=== PATIENT | male | born 1965 | race Caucasian/White ===

== ENCOUNTER 2020-05-18 22:48 | Inpatient (IN) | payer MEDICAID, OTHER ==
[~2020-05-18] VITALS: Ht 167.6 cm; Wt 106.8 kg
[2020-05-18 23:54] LABS: BG BASE EXCESS -9.3 mmol/L (-2.0-2.0); BG CARBOXYHEMOGLOBIN 0.3 % (0.5-1.5); BG DEOXYHEMOGLOBIN 5.8 % (0.0-5.0); BG FRACTION INSPIRED OXYGEN 100; BG HCO3 ACT 17.8 mmol/L (22.0-26.0); BG METHEMOGLOBIN 0.3 % (0.0-1.5); BG OXYGEN SATURATION 94.2 % (92.0-98.5); BG OXYHEMOGLOBIN 93.6 % (94.0-97.0); BG PCO2 43.5 mmHg (35.0-45.0); BG TOTAL HEMOGLOBIN 11.8 g/dL (12.0-18.0); BG VENT MODE MASK - NRB
[2020-05-19] MEDS ORDERED: LEVOFLOXACIN 500MG PREMIX 100 ML IV ONE
[2020-05-19] MEDS ORDERED: PIPERACILLIN/TAZ 3.375G PREMIX 50 ML IV ONE
[2020-05-19 00:15] LABS: HEMATOCRIT. 33.7 % (42.0-52.0); HEMOGLOBIN. 10.9 g/dL (14.0-18.0); MEAN CORPUSCULAR HEMOGLOBIN 28.3 pg (28.0-32.0); MEAN CORPUSCULAR VOLUME 87.6 fL (80.0-94.0); MEAN PLATELET VOLUME 8.5 fl (7.4-10.4); PLATELET 331 x1000/uL (130-400); RED BLOOD CELL COUNT 3.85 mill/uL (4.7-6.1); RED CELL DISTRIBUTION WIDTH 15.1 % (11.6-14.6)
[2020-05-19] MEDS ORDERED: SODIUM CHLORIDE 0.9% 1,000 ML IV ONE (00:15)
[2020-05-19] MEDS ORDERED: DEXAMETHASONE 10 MG/ML VIAL IV ONE (00:15)
[2020-05-19 00:21] LABS: CHLORIDE 108 mEq/L (98-107)
[2020-05-19 00:27] LABS: ETHANOL BLOOD < 10 mg/dL
[2020-05-19 00:31] LABS: CREATINE KINASE 204 IU/L (39-308)
[2020-05-19 00:35] LABS: D-DIMER 0.52 mg/L FEU (<0.50); INR 1.1; PROTHROMBIN TIME 11.4 sec (9.6-11.0)
[2020-05-19 00:48] LABS: FIBRINOGEN > 900 mg/dL (200-400)
[2020-05-19] MEDS ORDERED: DOPAMINE 400MG/250ML PREMIX 250 ML IV ONE (01:00)
[2020-05-19] MEDS ORDERED: DOPAMINE 400MG/250ML PREMIX 250 ML IV NR (03:30)
[2020-05-19 05:02] LABS: CLARITY URINE TURBID (CLEAR); COLOR URINE YELLOW (YELLOW); KETONES URINE TRACE (NEGATIVE); LEUKOCYTE ESTERASE URINE NEGATIVE (NEGATIVE); NITRITE URINE NEGATIVE (NEGATIVE); OCCULT BLOOD URINE 1+ (NEGATIVE); PROTEIN URINE 4+ (NEGATIVE); SPECIFIC GRAVITY URINE 1.023 (1.005-1.030); UROBILINOGEN URINE 0.2 E.U./dL (0.2-1.0)
[2020-05-19 05:06] LABS: PLATELET ESTIMATE NORMAL
[2020-05-19 05:27] LABS: *COCAINE SCREEN URINE NEGATIVE (NEGATIVE); METHADONE URINE SCREEN NEGATIVE (NEGATIVE); OPIATES URINE SCREEN NEGATIVE (NEGATIVE); PHENCYCLIDINE URINE SCREEN NEGATIVE (NEGATIVE)
[2020-05-19 05:28] LABS: *AMPHETAMINES SCREEN URINE NEGATIVE (NEGATIVE); *BARBITURATES SCREEN URINE NEGATIVE (NEGATIVE); *BENZODIAZEPINES SCREEN URINE NEGATIVE (NEGATIVE); CANNABINOID URINE SCREEN NEGATIVE (NEGATIVE)
[2020-05-19] MEDS ORDERED: DEXTROSE 50% WATER 50ML SYRINGE IV PRN (09:00)
[2020-05-19] MEDS ORDERED: SODIUM POLYSTYRENE SULFONATE 15 G/60 ML BOT PO SCH (09:00)
[2020-05-19] MEDS ORDERED: PIPERACILLIN/TAZOBACTAM 2.25 G in DEXTROSE 5% WATER 50 ML IV SCH (09:00)
[2020-05-19] MEDS ORDERED: PIPERACILLIN/TAZOBACTAM 3.375 G in DEXT 5% WATER 100 ML IV SCH (09:00)
[2020-05-19] MEDS: BLOOD SUGAR DIAGNOSTIC STRIP TEST SCH ×4 (09:11→20:49)
[2020-05-19] MEDS ORDERED: LIDOCAINE HCL 1% 20ML VIAL (Pyxis) INJ ONE (09:14)
[2020-05-19] MEDS ORDERED: SODIUM BICARBONATE 8.4% 1 MEQ/ML 50ML SYR IV NR (09:30)
[2020-05-19] MEDS ORDERED: ALBUMIN HUMAN 12.5GM/50ML (25%) IV NR (10:00)
[2020-05-19] MEDS ORDERED: ALBUMIN HUMAN 25GM/100ML (25%) IV NR (10:00)
[2020-05-19 11:00] VITALS: BP 167/91
[2020-05-19 12:00] VITALS: BP 161/91
[2020-05-19] MEDS: ACETAMINOPHEN 325MG TABLET PO PRN ×2 (12:46→20:48)
[2020-05-19 12:54] VITALS: BP 167/91
[2020-05-19] MEDS: INSULIN LISPRO 100 UNITS/ML SUBCUT SCH ×3 (14:24→20:49)
[2020-05-19] MEDS: PIPERACILLIN/TAZOBACTAM 2.25 G in DEXTROSE 5% WATER 50 ML IV SCH (17:54)
[2020-05-19] MEDS ORDERED: INSULIN GLARGINE UD 100 UNITS/ML SYR SUBCUT NR ×2 (18:15→19:30)
[2020-05-19] MEDS: AMLODIPINE 10MG TABLET PO SCH (18:52)
[2020-05-19] MEDS ORDERED: IVERMECTIN 3 MG TABLET PO ONE (19:15)
[2020-05-19 20:00] VITALS: BP 109/75
[2020-05-19] MEDS ORDERED: COLCHICINE 0.6MG TABLET PO SCH (21:00)
[2020-05-19] MEDS ORDERED: INSULIN GLARGINE UD 100 UNITS/ML SYR SUBCUT SCH (22:00)
[2020-05-20] MEDS: PIPERACILLIN/TAZOBACTAM 2.25 G in DEXTROSE 5% WATER 50 ML IV SCH ×3 (01:07→17:34)
[2020-05-20 01:15] VITALS: BP 145/89
[2020-05-20] MEDS: HYDROCODONE/ACETAMINOPHEN 5/325MG TABLET PO PRN ×2 (01:27→08:48)
[2020-05-20 04:00] VITALS: BP 144/78
[2020-05-20] MEDS: INSULIN LISPRO 100 UNITS/ML SUBCUT SCH ×4 (06:38→21:59)
[2020-05-20] MEDS: BLOOD SUGAR DIAGNOSTIC STRIP TEST SCH ×4 (06:39→21:09)
[2020-05-20 07:42] LABS: HEMATOCRIT. 32.4 % (42.0-52.0); HEMOGLOBIN. 10.5 g/dL (14.0-18.0); MEAN CORPUSCULAR HEMOGLOBIN 28.3 pg (28.0-32.0); MEAN CORPUSCULAR VOLUME 87.9 fL (80.0-94.0); MEAN PLATELET VOLUME 8.3 fl (7.4-10.4); PLATELET 312 x1000/uL (130-400); RED BLOOD CELL COUNT 3.69 mill/uL (4.7-6.1); RED CELL DISTRIBUTION WIDTH 15.1 % (11.6-14.6)
[2020-05-20 08:00] VITALS: BP 153/84
[2020-05-20 08:08] LABS: CHLORIDE 103 mEq/L (98-107)
[2020-05-20 08:14] LABS: PHOSPHORUS 6.7 mg/dL (2.5-4.9)
[2020-05-20 08:16] LABS: CREATINE KINASE 110 IU/L (39-308)
[2020-05-20] MEDS: AMLODIPINE 10MG TABLET PO SCH (08:39)
[2020-05-20] MEDS: INSULIN GLARGINE UD 100 UNITS/ML SYR SUBCUT SCH ×2 (11:09→22:00)
[2020-05-20 12:00] VITALS: BP 140/80
[2020-05-20] MEDS ORDERED: IPRATROPIUM/ALBUTEROL 0.5-3(2.5)MG/3ML NEB HHN PRN (15:45)
[2020-05-20 16:00] VITALS: BP 144/83
[2020-05-20 18:31] LABS: PLATELET ESTIMATE NORMAL
[2020-05-20 21:17] VITALS: BP 144/83
[2020-05-21] VITALS: BP 139/74
[2020-05-21] MEDS: PIPERACILLIN/TAZOBACTAM 2.25 G in DEXTROSE 5% WATER 50 ML IV SCH ×3 (02:09→17:06)
[2020-05-21] MEDS: INSULIN LISPRO 100 UNITS/ML SUBCUT SCH ×4 (06:54→21:48)
[2020-05-21] MEDS: BLOOD SUGAR DIAGNOSTIC STRIP TEST SCH ×4 (06:54→21:00)
[2020-05-21 07:00] VITALS: BP 120/78
[2020-05-21 07:41] LABS: BASOPHILS % 0.3 % (0.0-2.0); EOSINOPHILS % 3.8 % (0.0-5.0); HEMATOCRIT. 33.9 % (42.0-52.0); HEMOGLOBIN. 10.9 g/dL (14.0-18.0); LYMPHOCYTES % 9.3 % (20.0-50.0); MEAN CORPUSCULAR HEMOGLOBIN 27.9 pg (28.0-32.0); MEAN CORPUSCULAR VOLUME 86.6 fL (80.0-94.0); MONOCYTES % 6.6 % (2.0-8.0); PLATELET 349 x1000/uL (130-400); RED BLOOD CELL COUNT 3.91 mill/uL (4.7-6.1); RED CELL DISTRIBUTION WIDTH 14.8 % (11.6-14.6)
[2020-05-21 08:00] VITALS: BP 155/78
[2020-05-21 08:08] LABS: HIV SCREEN 4G Non Reactive (Non Reactive)
[2020-05-21 08:09] LABS: PHOSPHORUS 7.6 mg/dL (2.5-4.9)
[2020-05-21] MEDS: AMLODIPINE 10MG TABLET PO SCH (08:43)
[2020-05-21] MEDS: INSULIN GLARGINE UD 100 UNITS/ML SYR SUBCUT SCH ×2 (10:53→21:47)
[2020-05-21] MEDS: HYDROCODONE/ACETAMINOPHEN 5/325MG TABLET PO PRN ×3 (10:56→21:46)
[2020-05-21 12:00] VITALS: BP 137/75
[2020-05-21 16:00] VITALS: BP 143/78
[2020-05-21] MEDS ORDERED: IVERMECTIN 3 MG TABLET PO ONE (19:15)
[2020-05-21 20:00] VITALS: BP 131/68
[2020-05-22] VITALS: BP 129/66
[2020-05-22] MEDS: PIPERACILLIN/TAZOBACTAM 2.25 G in DEXTROSE 5% WATER 50 ML IV SCH ×3 (01:31→17:27)
[2020-05-22 04:00] VITALS: BP 134/76
[2020-05-22] MEDS: BLOOD SUGAR DIAGNOSTIC STRIP TEST SCH ×4 (06:11→21:00)
[2020-05-22] MEDS: INSULIN LISPRO 100 UNITS/ML SUBCUT SCH ×4 (06:12→21:00)
[2020-05-22 07:29] LABS: BASOPHILS % 0.6 % (0.0-2.0); EOSINOPHILS % 9.2 % (0.0-5.0); HEMATOCRIT. 33.3 % (42.0-52.0); HEMOGLOBIN. 10.9 g/dL (14.0-18.0); LYMPHOCYTES % 8.4 % (20.0-50.0); MEAN CORPUSCULAR HEMOGLOBIN 28.4 pg (28.0-32.0); MEAN CORPUSCULAR VOLUME 86.9 fL (80.0-94.0); MEAN PLATELET VOLUME 8.3 fl (7.4-10.4); MONOCYTES % 7.3 % (2.0-8.0); NEUTROPHILS % 74.5 % (40.0-76.0); PLATELET 370 x1000/uL (130-400); RED BLOOD CELL COUNT 3.83 mill/uL (4.7-6.1); RED CELL DISTRIBUTION WIDTH 14.6 % (11.6-14.6)
[2020-05-22 07:50] LABS: PHOSPHORUS 7.9 mg/dL (2.5-4.9)
[2020-05-22 08:00] VITALS: BP 155/84
[2020-05-22] MEDS: AMLODIPINE 10MG TABLET PO SCH (08:18)
[2020-05-22] MEDS: GUAIFENESIN 200MG/10ML SUGAR FREE UDC PO PRN (09:25)
[2020-05-22] MEDS: INSULIN GLARGINE UD 100 UNITS/ML SYR SUBCUT SCH ×2 (10:07→21:08)
[2020-05-22 12:00] VITALS: BP 143/73
[2020-05-22] MEDS: HYDROCODONE/ACETAMINOPHEN 5/325MG TABLET PO PRN (12:13)
[2020-05-22] MEDS: DOCUSATE SODIUM 100MG CAPSULE PO SCH ×2 (13:36→21:09)
[2020-05-22 16:00] VITALS: BP 144/73
[2020-05-22 20:00] VITALS: BP 148/77
[2020-05-22] MEDS: GUAIFENESIN 600MG ER TABLET PO SCH (21:09)
[2020-05-23] VITALS: BP 147/69
[2020-05-23] MEDS: HYDROCODONE/ACETAMINOPHEN 5/325MG TABLET PO PRN ×2 (01:07→20:57)
[2020-05-23] MEDS: PIPERACILLIN/TAZOBACTAM 2.25 G in DEXTROSE 5% WATER 50 ML IV SCH ×3 (01:14→18:00)
[2020-05-23] MEDS: IPRATROPIUM/ALBUTEROL 0.5-3(2.5)MG/3ML NEB HHN SCH ×3 (01:43→21:50)
[2020-05-23 04:00] VITALS: BP 159/74
[2020-05-23] MEDS: BLOOD SUGAR DIAGNOSTIC STRIP TEST SCH ×4 (06:08→20:26)
[2020-05-23] MEDS: INSULIN LISPRO 100 UNITS/ML SUBCUT SCH ×4 (06:08→22:13)
[2020-05-23 06:52] LABS: BASOPHILS % 0.5 % (0.0-2.0); EOSINOPHILS % 10.6 % (0.0-5.0); HEMATOCRIT. 33.7 % (42.0-52.0); HEMOGLOBIN. 11.1 g/dL (14.0-18.0); LYMPHOCYTES % 8.7 % (20.0-50.0); MEAN CORPUSCULAR HEMOGLOBIN 28.3 pg (28.0-32.0); MEAN CORPUSCULAR VOLUME 86.3 fL (80.0-94.0); NEUTROPHILS % 72.2 % (40.0-76.0); PLATELET 355 x1000/uL (130-400); RED BLOOD CELL COUNT 3.91 mill/uL (4.7-6.1); RED CELL DISTRIBUTION WIDTH 14.7 % (11.6-14.6)
[2020-05-23 07:34] LABS: HEPATITIS B SURFACE ANTIGEN NEGATIVE
[2020-05-23 07:55] LABS: PHOSPHORUS 8.4 mg/dL (2.5-4.9)
[2020-05-23 08:00] VITALS: BP 160/84
[2020-05-23 08:04] LABS: HEPATITIS A AB IGM NEGATIVE (NEGATIVE)
[2020-05-23 08:45] LABS: BG BASE EXCESS -5.5 mmol/L (-2.0-2.0); BG CARBOXYHEMOGLOBIN 0.3 % (0.5-1.5); BG DEOXYHEMOGLOBIN 9.7 % (0.0-5.0); BG FRACTION INSPIRED OXYGEN 80; BG HCO3 ACT 19.9 mmol/L (22.0-26.0); BG METHEMOGLOBIN 0.1 % (0.0-1.5); BG OXYGEN SATURATION 90.3 % (92.0-98.5); BG OXYHEMOGLOBIN 89.9 % (94.0-97.0); BG PCO2 38.2 mmHg (35.0-45.0); BG PH 7.334 (7.350-7.450); BG PO2 59.8 mmHg (75.0-100.0); BG SAMPLE SITE RIGHT RADIAL; BG TOTAL HEMOGLOBIN 11.7 g/dL (12.0-18.0); BG VENT MODE MASK - SIMPLE
[2020-05-23] MEDS: GUAIFENESIN 200MG/10ML SUGAR FREE UDC PO PRN (08:56)
[2020-05-23] MEDS: DOCUSATE SODIUM 100MG CAPSULE PO SCH ×2 (08:56→17:00)
[2020-05-23] MEDS: AMLODIPINE 10MG TABLET PO SCH (08:56)
[2020-05-23] MEDS: GUAIFENESIN 600MG ER TABLET PO SCH ×2 (08:57→20:54)
[2020-05-23] MEDS: INSULIN GLARGINE UD 100 UNITS/ML SYR SUBCUT SCH ×2 (10:00→22:13)
[2020-05-23 16:00] VITALS: BP 152/72
[2020-05-23 20:00] VITALS: BP 168/77
[2020-05-24] VITALS (7 sets, daily range): BP systolic 143–176; BP diastolic 70–82
[2020-05-24] MEDS: PIPERACILLIN/TAZOBACTAM 2.25 G in DEXTROSE 5% WATER 50 ML IV SCH ×2 (01:42→11:39)
[2020-05-24] MEDS: IPRATROPIUM/ALBUTEROL 0.5-3(2.5)MG/3ML NEB HHN SCH ×4 (02:20→20:43)
[2020-05-24] MEDS: BLOOD SUGAR DIAGNOSTIC STRIP TEST SCH ×4 (06:02→20:15)
[2020-05-24] MEDS: HYDROCODONE/ACETAMINOPHEN 5/325MG TABLET PO PRN ×2 (06:33→21:29)
[2020-05-24] MEDS: AMLODIPINE 10MG TABLET PO SCH (06:41)
[2020-05-24] MEDS: INSULIN LISPRO 100 UNITS/ML SUBCUT SCH ×4 (06:43→20:24)
[2020-05-24 07:16] LABS: PHOSPHORUS 5.7 mg/dL (2.5-4.9)
[2020-05-24 07:37] LABS: HEMATOCRIT. 33.6 % (42.0-52.0); HEMOGLOBIN. 11.3 g/dL (14.0-18.0); MEAN CORPUSCULAR HEMOGLOBIN 28.7 pg (28.0-32.0); MEAN CORPUSCULAR VOLUME 85.6 fL (80.0-94.0); PLATELET 354 x1000/uL (130-400); RED BLOOD CELL COUNT 3.93 mill/uL (4.7-6.1); RED CELL DISTRIBUTION WIDTH 14.5 % (11.6-14.6)
[2020-05-24] MEDS: GUAIFENESIN 600MG ER TABLET PO SCH ×2 (08:54→20:24)
[2020-05-24] MEDS: DOCUSATE SODIUM 100MG CAPSULE PO SCH ×2 (08:54→17:45)
[2020-05-24] MEDS ORDERED: LOSARTAN POTASSIUM 25 MG TABLET PO SCH (09:00)
[2020-05-24] MEDS: INSULIN GLARGINE UD 100 UNITS/ML SYR SUBCUT SCH ×2 (11:40→21:32)
[2020-05-24 12:06] LABS: BG BASE EXCESS 0.9 mmol/L (-2.0-2.0); BG CARBOXYHEMOGLOBIN 0.3 % (0.5-1.5); BG DEOXYHEMOGLOBIN 7.6 % (0.0-5.0); BG FRACTION INSPIRED OXYGEN 52; BG METHEMOGLOBIN 0.1 % (0.0-1.5); BG OXYGEN SATURATION 92.4 % (92.0-98.5); BG PCO2 43.3 mmHg (35.0-45.0); BG PH 7.396 (7.350-7.450); BG PO2 64.1 mmHg (75.0-100.0); BG SAMPLE SITE RIGHT RADIAL; BG TOTAL HEMOGLOBIN 10.4 g/dL (12.0-18.0); BG VENT MODE MASK - SIMPLE
[2020-05-24] MEDS ORDERED: LOSARTAN POTASSIUM 50 MG TABLET PO NR (13:00)
[2020-05-24] MEDS ORDERED: LOSARTAN POTASSIUM 25 MG TABLET PO NR (13:00)
[2020-05-24] MEDS: ACETYLCYSTEINE 100MG/ML 10% VIAL 4ML INH SCH (20:43)
[2020-05-24 22:37] LABS: PLATELET ESTIMATE NORMAL
[2020-05-25] VITALS: BP 133/72
[2020-05-25 04:00] VITALS: BP 158/78
[2020-05-25] MEDS: IPRATROPIUM/ALBUTEROL 0.5-3(2.5)MG/3ML NEB HHN SCH ×5 (04:33→21:20)
[2020-05-25] MEDS: BLOOD SUGAR DIAGNOSTIC STRIP TEST SCH ×4 (05:59→21:59)
[2020-05-25] MEDS: INSULIN LISPRO 100 UNITS/ML SUBCUT SCH ×4 (05:59→22:08)
[2020-05-25 07:38] LABS: PHOSPHORUS 6.2 mg/dL (2.5-4.9)
[2020-05-25 08:00] VITALS: BP 134/61
[2020-05-25] MEDS: DOCUSATE SODIUM 100MG CAPSULE PO SCH ×2 (09:00→17:12)
[2020-05-25] MEDS: LOSARTAN POTASSIUM 100 MG TABLET PO SCH (09:00)
[2020-05-25] MEDS: GUAIFENESIN 600MG ER TABLET PO SCH ×2 (09:00→22:07)
[2020-05-25] MEDS: AMLODIPINE 10MG TABLET PO SCH (09:00)
[2020-05-25] MEDS: INSULIN GLARGINE UD 100 UNITS/ML SYR SUBCUT SCH ×2 (09:20→22:00)
[2020-05-25] MEDS: ACETYLCYSTEINE 100MG/ML 10% VIAL 4ML INH SCH (09:22)
[2020-05-25 09:38] LABS: BASOPHILS % 0.7 % (0.0-2.0); EOSINOPHILS % 7.8 % (0.0-5.0); HEMATOCRIT. 38.9 % (42.0-52.0); HEMOGLOBIN. 12.4 g/dL (14.0-18.0); LYMPHOCYTES % 7.8 % (20.0-50.0); MEAN CORPUSCULAR HEMOGLOBIN 28.4 pg (28.0-32.0); MEAN CORPUSCULAR VOLUME 89.3 fL (80.0-94.0); MEAN PLATELET VOLUME 8.1 fl (7.4-10.4); MONOCYTES % 6.9 % (2.0-8.0); NEUTROPHILS % 76.8 % (40.0-76.0); PLATELET 275 x1000/uL (130-400); RED BLOOD CELL COUNT 4.35 mill/uL (4.7-6.1); RED CELL DISTRIBUTION WIDTH 14.8 % (11.6-14.6)
[2020-05-25 12:00] VITALS: BP 135/61
[2020-05-25] MEDS: ACETAMINOPHEN 325MG TABLET PO PRN (12:15)
[2020-05-25 16:00] VITALS: BP 142/64
[2020-05-25] MEDS: HYDROCODONE/ACETAMINOPHEN 5/325MG TABLET PO PRN (17:22)
[2020-05-25 20:00] VITALS: BP 170/86
[2020-05-25] MEDS: CLONIDINE 0.1MG TABLET PO PRN (23:08)
[2020-05-26] MEDS: ACETYLCYSTEINE 100MG/ML 10% VIAL 4ML INH SCH ×4 (00:47→17:03)
[2020-05-26] MEDS: IPRATROPIUM/ALBUTEROL 0.5-3(2.5)MG/3ML NEB HHN SCH ×6 (00:47→21:25)
[2020-05-26 04:00] VITALS: BP 176/87
[2020-05-26] MEDS: BLOOD SUGAR DIAGNOSTIC STRIP TEST SCH ×4 (05:31→21:00)
[2020-05-26] MEDS: CLONIDINE 0.1MG TABLET PO PRN (05:42)
[2020-05-26 06:43] LABS: BASOPHILS % 0.5 % (0.0-2.0); EOSINOPHILS % 8.5 % (0.0-5.0); HEMATOCRIT. 34.7 % (42.0-52.0); HEMOGLOBIN. 11.3 g/dL (14.0-18.0); LYMPHOCYTES % 8.3 % (20.0-50.0); MEAN CORPUSCULAR HEMOGLOBIN 28.1 pg (28.0-32.0); MEAN CORPUSCULAR VOLUME 86.1 fL (80.0-94.0); MEAN PLATELET VOLUME 7.6 fl (7.4-10.4); MONOCYTES % 8.2 % (2.0-8.0); NEUTROPHILS % 74.5 % (40.0-76.0); PLATELET 389 x1000/uL (130-400); RED BLOOD CELL COUNT 4.03 mill/uL (4.7-6.1); RED CELL DISTRIBUTION WIDTH 14.4 % (11.6-14.6)
[2020-05-26] MEDS: INSULIN LISPRO 100 UNITS/ML SUBCUT SCH ×4 (06:49→22:08)
[2020-05-26 07:01] LABS: PHOSPHORUS 5.5 mg/dL (2.5-4.9)
[2020-05-26 08:00] VITALS: BP 137/91
[2020-05-26] MEDS: GUAIFENESIN 200MG/10ML SUGAR FREE UDC PO PRN (08:43)
[2020-05-26] MEDS: LOSARTAN POTASSIUM 100 MG TABLET PO SCH (08:43)
[2020-05-26] MEDS: AMLODIPINE 10MG TABLET PO SCH (08:43)
[2020-05-26] MEDS: DOCUSATE SODIUM 100MG CAPSULE PO SCH ×2 (08:44→17:00)
[2020-05-26] MEDS: GUAIFENESIN 600MG ER TABLET PO SCH ×2 (08:44→22:06)
[2020-05-26] MEDS: HYDRALAZINE HCL 50MG TABLET PO SCH ×2 (08:46→22:08)
[2020-05-26] MEDS: INSULIN GLARGINE UD 100 UNITS/ML SYR SUBCUT SCH ×2 (11:00→22:07)
[2020-05-26 11:54] VITALS: BP 140/70
[2020-05-26] MEDS: ACETAMINOPHEN 325MG TABLET PO PRN (12:25)
[2020-05-26] MEDS ORDERED: CEFEPIME 1,000 MG in DEXTROSE 5% WATER 50 ML IV SCH (15:30)
[2020-05-26 16:02] VITALS: BP 137/69
[2020-05-26 20:00] VITALS: BP 159/84
[2020-05-27] VITALS: BP 153/79
[2020-05-27] MEDS: IPRATROPIUM/ALBUTEROL 0.5-3(2.5)MG/3ML NEB HHN SCH ×6 (00:57→21:20)
[2020-05-27 04:00] VITALS: BP_SYST 125; BP_SYST 151; BP_DIAS 66; BP_DIAS 80
[2020-05-27] MEDS: ONDANSETRON HCL 4MG/2ML INJ IV PRN ×2 (05:48→21:32)
[2020-05-27] MEDS: INSULIN LISPRO 100 UNITS/ML SUBCUT SCH ×4 (06:03→22:25)
[2020-05-27] MEDS: BLOOD SUGAR DIAGNOSTIC STRIP TEST SCH ×4 (06:03→21:00)
[2020-05-27 07:00] LABS: BASOPHILS % 0.4 % (0.0-2.0); EOSINOPHILS % 10.7 % (0.0-5.0); HEMATOCRIT. 32.8 % (42.0-52.0); HEMOGLOBIN. 10.8 g/dL (14.0-18.0); LYMPHOCYTES % 10.1 % (20.0-50.0); MEAN CORPUSCULAR HEMOGLOBIN 28.3 pg (28.0-32.0); MEAN CORPUSCULAR VOLUME 85.7 fL (80.0-94.0); MEAN PLATELET VOLUME 7.9 fl (7.4-10.4); MONOCYTES % 7.4 % (2.0-8.0); NEUTROPHILS % 71.4 % (40.0-76.0); PLATELET 403 x1000/uL (130-400); RED BLOOD CELL COUNT 3.83 mill/uL (4.7-6.1); RED CELL DISTRIBUTION WIDTH 14.2 % (11.6-14.6)
[2020-05-27 07:16] LABS: PHOSPHORUS 6.6 mg/dL (2.5-4.9)
[2020-05-27 08:00] VITALS: BP 154/79
[2020-05-27] MEDS: ACETYLCYSTEINE 100MG/ML 10% VIAL 4ML INH SCH ×3 (08:50→16:40)
[2020-05-27] MEDS: DOCUSATE SODIUM 100MG CAPSULE PO SCH ×2 (09:00→17:00)
[2020-05-27] MEDS: HYDRALAZINE HCL 50MG TABLET PO SCH ×2 (09:00→22:20)
[2020-05-27] MEDS: LOSARTAN POTASSIUM 100 MG TABLET PO SCH (09:00)
[2020-05-27] MEDS: GUAIFENESIN 600MG ER TABLET PO SCH ×2 (09:00→22:20)
[2020-05-27] MEDS: AMLODIPINE 10MG TABLET PO SCH (09:00)
[2020-05-27] MEDS: INSULIN GLARGINE UD 100 UNITS/ML SYR SUBCUT SCH ×2 (10:00→22:25)
[2020-05-27] MEDS ORDERED: HEPARIN SODIUM 1,000 UNIT/1ML VIAL IV NR (10:00)
[2020-05-27 12:00] VITALS: BP 133/68
[2020-05-27] MEDS ORDERED: HYDROCODONE/ACETAMINOPHEN 5/325MG TABLET PO PRN (12:15)
[2020-05-27] MEDS: CEFEPIME 1,000 MG in DEXTROSE 5% WATER 50 ML IV SCH (12:17)
[2020-05-27 12:31] LABS: BG BASE EXCESS 4.1 mmol/L (-2.0-2.0); BG CARBOXYHEMOGLOBIN 0.1 % (0.5-1.5); BG DEOXYHEMOGLOBIN 21.7 % (0.0-5.0); BG HCO3 ACT 28.7 mmol/L (22.0-26.0); BG METHEMOGLOBIN 0.3 % (0.0-1.5); BG OXYGEN SATURATION 78.2 % (92.0-98.5); BG OXYHEMOGLOBIN 77.9 % (94.0-97.0); BG PCO2 43.2 mmHg (35.0-45.0); BG SAMPLE SITE RIGHT RADIAL; BG TOTAL HEMOGLOBIN 10.9 g/dL (12.0-18.0); BG VENT MODE ROOM AIR
[2020-05-27 16:00] VITALS: BP 158/77
[2020-05-27 20:00] VITALS: BP 148/80
[2020-05-28] VITALS (22 sets, daily range): BP systolic 144–166; BP diastolic 66–96
[2020-05-28] MEDS: CLONIDINE 0.1MG TABLET PO PRN (01:06)
[2020-05-28] MEDS: IPRATROPIUM/ALBUTEROL 0.5-3(2.5)MG/3ML NEB HHN SCH ×6 (04:00→21:57)
[2020-05-28] MEDS: BLOOD SUGAR DIAGNOSTIC STRIP TEST SCH ×4 (06:24→21:00)
[2020-05-28] MEDS: INSULIN LISPRO 100 UNITS/ML SUBCUT SCH ×4 (06:24→21:00)
[2020-05-28 07:27] LABS: BASOPHILS % 0.5 % (0.0-2.0); EOSINOPHILS % 9.5 % (0.0-5.0); HEMATOCRIT. 30.4 % (42.0-52.0); HEMOGLOBIN. 9.9 g/dL (14.0-18.0); LYMPHOCYTES % 11.2 % (20.0-50.0); MEAN CORPUSCULAR HEMOGLOBIN 27.9 pg (28.0-32.0); MEAN CORPUSCULAR VOLUME 85.7 fL (80.0-94.0); MEAN PLATELET VOLUME 8.2 fl (7.4-10.4); MONOCYTES % 8.1 % (2.0-8.0); NEUTROPHILS % 70.7 % (40.0-76.0); PLATELET 397 x1000/uL (130-400); RED BLOOD CELL COUNT 3.55 mill/uL (4.7-6.1); RED CELL DISTRIBUTION WIDTH 14.3 % (11.6-14.6)
[2020-05-28 07:36] LABS: PHOSPHORUS 5.3 mg/dL (2.5-4.9)
[2020-05-28] MEDS: ACETYLCYSTEINE 100MG/ML 10% VIAL 4ML INH SCH ×2 (08:13→14:00)
[2020-05-28] MEDS: AMLODIPINE 10MG TABLET PO SCH (10:18)
[2020-05-28] MEDS: GUAIFENESIN 600MG ER TABLET PO SCH ×2 (10:18→21:53)
[2020-05-28] MEDS: DOCUSATE SODIUM 100MG CAPSULE PO SCH ×2 (10:18→17:57)
[2020-05-28] MEDS: LOSARTAN POTASSIUM 100 MG TABLET PO SCH (10:18)
[2020-05-28] MEDS: HYDRALAZINE HCL 50MG TABLET PO SCH ×2 (10:19→21:53)
[2020-05-28] MEDS: INSULIN GLARGINE UD 100 UNITS/ML SYR SUBCUT SCH ×2 (10:20→22:56)
[2020-05-28] MEDS: CEFEPIME 1,000 MG in DEXTROSE 5% WATER 50 ML IV SCH (11:37)
[2020-05-28] MEDS ORDERED: LIDOCAINE HCL 1% 20ML VIAL (Pyxis) INJ ONE (13:39)
[2020-05-28] MEDS ORDERED: SODIUM BICARBONATE 4% (2.4MEQ) 5ML VIAL IV ONE (13:39)
[2020-05-28] MEDS ORDERED: FENTANYL CITRATE/PF 50MCG/ML 2ML VIAL ONE (14:03)
[2020-05-28] MEDS ORDERED: ALBU18HF2 IH (17:51)
[2020-05-28] MEDS ORDERED: HYDR-4135 PO (17:51)
[2020-05-28] MEDS ORDERED: NIFE-32 MT (17:51)
[2020-05-28] MEDS ORDERED: LOSA100T3 PO (17:51)
[2020-05-29] VITALS: BP 137/77
[2020-05-29] MEDS: IPRATROPIUM/ALBUTEROL 0.5-3(2.5)MG/3ML NEB HHN SCH ×3 (02:14→09:15)
[2020-05-29] MEDS: ACETYLCYSTEINE 100MG/ML 10% VIAL 4ML INH SCH ×2 (02:14→09:15)
[2020-05-29 04:00] VITALS: BP 144/65
[2020-05-29] MEDS: BLOOD SUGAR DIAGNOSTIC STRIP TEST SCH (06:45)
[2020-05-29] MEDS: INSULIN LISPRO 100 UNITS/ML SUBCUT SCH (07:15)
[2020-05-29 07:45] LABS: HEMATOCRIT. 32.1 % (42.0-52.0); HEMOGLOBIN. 10.3 g/dL (14.0-18.0); MEAN CORPUSCULAR HEMOGLOBIN 27.6 pg (28.0-32.0); MEAN CORPUSCULAR VOLUME 86.3 fL (80.0-94.0); MEAN PLATELET VOLUME 8.2 fl (7.4-10.4); PLATELET 437 x1000/uL (130-400); RED BLOOD CELL COUNT 3.71 mill/uL (4.7-6.1); RED CELL DISTRIBUTION WIDTH 14.4 % (11.6-14.6)
[2020-05-29 08:00] VITALS: BP 162/82
[2020-05-29 08:12] LABS: PHOSPHORUS 6.1 mg/dL (2.5-4.9)
[2020-05-29] MEDS: DOCUSATE SODIUM 100MG CAPSULE PO SCH (09:11)
[2020-05-29] MEDS: HYDRALAZINE HCL 50MG TABLET PO SCH (09:11)
[2020-05-29] MEDS: GUAIFENESIN 600MG ER TABLET PO SCH (09:11)
[2020-05-29] MEDS: LOSARTAN POTASSIUM 100 MG TABLET PO SCH (09:12)
[2020-05-29] MEDS: AMLODIPINE 10MG TABLET PO SCH (09:12)
[2020-05-29] MEDS: INSULIN GLARGINE UD 100 UNITS/ML SYR SUBCUT SCH (09:14)
[2020-05-29] MEDS: ONDANSETRON HCL 4MG/2ML INJ IV PRN (10:46)
[2020-05-29 11:40] VITALS: BP 165/72
[2020-05-29 12:58] LABS: PLATELET ESTIMATE INCREASED
== END 2020-05-29 12:23 | disposition home health service (06) | DRG 720 ==
LOC: ER 22:48 → MICUSO 05-19 02:40 → EDBEDREQTM 05-19 02:43 → EDBEDREQDT 05-19 02:43 → EDBEDREQ 05-19 02:43 → EDBEDREQSVC 05-19 08:28 → 7WST 05-19 09:59 → 5WST 05-20 00:45
PROVIDERS: ADMIT Internal Medicine; ATTEND Internal Medicine
PROC: 02HV33Z Insertion of Infusion Device into Superior Vena Cava, Percutaneous Approach (ICD-10-PCS; principal; 2020-05-19)
PROC: B548ZZA Ultrasonography of Superior Vena Cava, Guidance (ICD-10-PCS; 2020-05-19)
PROC: 5A1D70Z Performance of Urinary Filtration, Intermittent, Less than 6 Hours Per Day (ICD-10-PCS; 2020-05-19)
PROC: 5A09357 Assistance with Respiratory Ventilation, Less than 24 Consecutive Hours, Continuous Positive Airway Pressure (ICD-10-PCS; 2020-05-19)
PROC: 5A1D70Z Performance of Urinary Filtration, Intermittent, Less than 6 Hours Per Day (ICD-10-PCS; 2020-05-23)
PROC: 5A1D70Z Performance of Urinary Filtration, Intermittent, Less than 6 Hours Per Day (ICD-10-PCS; 2020-05-25)
PROC: 5A1D70Z Performance of Urinary Filtration, Intermittent, Less than 6 Hours Per Day (ICD-10-PCS; 2020-05-27)
PROC: 02PYX3Z Removal of Infusion Device from Great Vessel, External Approach (ICD-10-PCS; 2020-05-28)
PROC: 02HV33Z Insertion of Infusion Device into Superior Vena Cava, Percutaneous Approach (ICD-10-PCS; 2020-05-28)
PROC: 0JH63XZ Insertion of Tunneled Vascular Access Device into Chest Subcutaneous Tissue and Fascia, Percutaneous Approach (ICD-10-PCS; 2020-05-28)
PROC: B518ZZA Fluoroscopy of Superior Vena Cava, Guidance (ICD-10-PCS; 2020-05-28)
PROC: 5A1D70Z Performance of Urinary Filtration, Intermittent, Less than 6 Hours Per Day (ICD-10-PCS; 2020-05-29)
DX: A41.9 Sepsis, unspecified organism (principal); N17.0 Acute kidney failure with tubular necrosis; E43 Unspecified severe protein-calorie malnutrition; J18.9 Pneumonia, unspecified organism; E87.5 Hyperkalemia; E87.8 Other disorders of electrolyte and fluid balance, not elsewhere classified; G90.8 Other disorders of autonomic nervous system; E66.9 Obesity, unspecified; R65.20 Severe sepsis without septic shock; E87.2 Acidosis; D64.9 Anemia, unspecified; J96.21 Acute and chronic respiratory failure with hypoxia; L85.3 Xerosis cutis; E11.51 Type 2 diabetes mellitus with diabetic peripheral angiopathy without gangrene; G92 Toxic encephalopathy; I13.2 Hypertensive heart and chronic kidney disease with heart failure and with stage 5 chronic kidney disease, or end stage renal disease; I50.9 Heart failure, unspecified; N18.6 End stage renal disease; Z20.822 Contact with and (suspected) exposure to COVID-19; E11.22 Type 2 diabetes mellitus with diabetic chronic kidney disease; Z89.511 Acquired absence of right leg below knee; Z82.49 Family history of ischemic heart disease and other diseases of the circulatory system; Z68.38 Body mass index [BMI] 38.0-38.9, adult; Z83.3 Family history of diabetes mellitus; J69.0 Pneumonitis due to inhalation of food and vomit
CPT/HCPCS: 36415; 36558; 36589; 36600; 71045; 71250; 76770; 76937; 77001; 80048; 80053; 80305; 80320; 81003; 82375; 82550; 82728; 82805; 82962; 83036; 83605; 83615; 83735; 83880; 84100; 84145; 84484; 85025; 85379; 85384; 86140; 86705; 86706; 86709; 86803; 87340; 87389; 87426; 93005; 93306; 93923; 93970; 94640; 94660; 96365; 97116; 97161; 99152; 99153; 99291; C1750; C1752; C1769; J0692; J1100; J1265; J1642; J1644; J1815; J1956; J2405; J2543; J3010; J3490; J7030; J7040; J7060; J7608; P9047; U0003; A4315; G0480; G0500